=== PATIENT | female | born 1975 | race Caucasian/White ===

== ENCOUNTER 2017-09-13 20:02 | Emergency (ER) | payer MEDICAID ==
[~2017-09-13] VITALS: Ht 160 cm; Wt 70.3 kg
[~2017-09-13 20:02] MED LIST: PROMETHAZINE; VICODIN
[2017-09-13 20:13] VITALS: BP_SYST 144
== END 2017-09-13 20:45 | disposition left against medical advice (07) ==
LOC: SED 20:02
DX: G43.909 Migraine, unspecified, not intractable, without status migrainosus (principal); Z53.21 Procedure and treatment not carried out due to patient leaving prior to being seen by health care provider